=== PATIENT | male | born 1940 | race Caucasian/White ===

== ENCOUNTER → 2019-12-16 | Day surgery (SDC) | payer MEDICARE, OTHER ==
[2019-12-11 15:53] LABS: BASOPHILS % 0.2 % (0.0-1.0); EOSINOPHILS # (AUTO) 0.2 (0.0-0.4); EOSINOPHILS % 2.4 % (0.0-6.0); HEMATOCRIT 42.2 % (38.2-49.6); HEMOGLOBIN 14.1 g/dL (14.0-18.0); LYMPHOCYTES # (AUTO) 2.8 (1.0-3.2); LYMPHOCYTES % 31.6 % (18.0-39.1); MEAN CORPUSCULAR HEMOGLOBIN 30.8 pg (28-32); MEAN CORPUSCULAR HGB CONC 33.4 g/dL (31-35); MEAN CORPUSCULAR VOLUME 92.1 fL (81-99); MONOCYTES # (AUTO) 0.9 (0.2-0.8); MONOCYTES % 10.4 % (4.4-11.3); NEUTROPHILS # (AUTO) 4.9 (2.1-6.9); NEUTROPHILS % 55.1 % (38.7-80.0); PLATELET COUNT 157 x10e3/uL (140-360); RED BLOOD COUNT 4.58 x10e6/uL (4.3-5.7); RED CELL DISTRIBUTION WIDTH 13.2 % (11.7-14.4)
[2019-12-11 16:04] LABS: PARTIAL THROMBOPLASTIN TIME 27.5 seconds (23.8-35.5)
[2019-12-11 16:09] LABS: INR 1.02; PROTHROMBIN TIME 13.6 seconds (11.9-14.5)
[2019-12-11 16:16] LABS: ALBUMIN 3.8 g/dL (3.5-5.0); ALBUMIN/GLOBULIN RATIO 1.1 (0.8-2.0); ANION GAP 14.9 mmol/L (8-16); CALCIUM 9.4 mg/dL (8.4-10.2); CREATININE, SERUM 1.18 mg/dL (0.72-1.25); POTASSIUM 3.9 mmol/L (3.5-5.1)
--- NOTE | 2019-12-11 16:21 | Diagnostic Imaging Report ---
Chest, 2 views, 12/11/2019. History: Preop, left heart catheter. Comparison: None available. Findings: The cardiomediastinal silhouette and pulmonary vasculature are within normal limits. There is bilateral peripheral interstitial prominence, especially at the lung bases. There is no focal consolidation or pleural effusion. There are no acute osseous or soft tissue abnormalities. Impression: Findings suggestive of fibrotic lung disease. Comparison with prior studies would be helpful. No focal consolidation or effusion. Signed by: Kana Asher on 12/11/2019 4:19 PM
[2019-12-11 16:28] LABS: CHOL/HDL RATIO 4.4 (3.9-4.7)
[2019-12-11 16:48] LABS: THYROID STIMULATING HORMONE 1.727 uIU/mL (0.350-4.940)
--- NOTE | 2019-12-13 23:41 | History and Physical ---
DATE OF PROCEDURE: December 16, 2019. CHIEF COMPLAINT: Chest pain and positive exercise treadmill stress test. HISTORY OF PRESENT ILLNESS: Mr. Cui is an 79-year-old gentleman with history of hypertension, hypercholesteremia with prior history of positive stress test done back in October of 2019 at [facility] where he had positive EKG changes and a nuclear stress imaging that appeared to be normal, but may have been suspicious for balanced ischemia situation. He has a long-standing history of having positive ischemic risk stratification and complains of class 3 equivalent angina symptoms. He came to us for evaluation back in November of this year and we went ahead and ischemically risk stratify with an exercise treadmill stress test. On our study, it only lasted for 4 minutes, terminating in stage II of activity and had significant ST-T wave changes and severe shortness of breath. Structurally, his heart shows preserved EF at about 55 to 60% with mild aortic stenosis. In light of his positive ischemic risk stratification and age as well as high pretest probability of coronary artery disease, he is here for a diagnostic angiography for definitive ischemic evaluation. PAST MEDICAL HISTORY: 1. Hypertension. 2. Hypercholesteremia. 3. History of abnormal stress test. PAST SURGICAL HISTORY: History of knee surgery in 2009. FAMILY HISTORY: Mother at 87 with heart problems. Father was shot at age of 42. Has a brother at 74, had heart problems. Sister at 65 with a heart attack and sister had cancer at age of 45. SOCIAL HISTORY: He is a former smoker, quit 30 years ago. He is . Denies any alcohol or illicit drug use. ALLERGIES: PENICILLIN G CAUSING HIVES. CURRENT MEDICATIONS: Include aspirin 81 mg daily, atorvastatin 10 mg daily, Toprol-XL 50 mg daily, Hyzaar 100/25 mg tablets half a tablet daily, potassium 8 mEq daily, niacin 500 mg b.i.d. REVIEW OF SYSTEMS: GENERAL: Denies any fevers, chills, or weight changes. HEENT: No headaches, visual complaints, sore throat, or stuffy nose. RESPIRATORY: Denies any pleuritic chest pain. Has occasional cough. CARDIOVASCULAR: As per HPI. GI: Denies any abdominal pain, bright red blood per rectum, melena, hematemesis, nausea, or vomiting. HEMATOLOGY: No easy bruising or bleeding. : No urinary frequency or incontinence. MUSCULOSKELETAL: Occasional back pains, knee aches. SKIN: No rashes. NEUROLOGIC: Good coordination, memory, and speech. No gait abnormalities or weakness. PSYCH: Normal mood. No nervousness, obsessions, or compulsions. PHYSICAL EXAMINATION: VITAL SIGNS: Height of 70 inches, weight of 208 pounds, BMI is 29.84, blood pressure 140/80, pulse 63, respiratory rate 18, temperature 97.8. GENERAL: This is a well-nourished, well-developed gentleman, who is currently overweight, currently in no apparent distress. HEENT: Normocephalic, atraumatic. Pupils equal, round, and reactive to light. Extraocular movements are intact. Oropharynx is clear. NECK: No elevation of jugular venous pulsation. There is faint bilateral carotid bruit. CARDIOVASCULAR: Regular rate and rhythm. Normal S1, S2. A 2/6 systolic ejection murmur at the right upper sternal border. LUNGS: Clear to auscultation bilaterally. ABDOMEN: Soft, nontender, nondistended. Normoactive bowel sounds. No hepatosplenomegaly. BACK: No costovertebral angle tenderness. EXTREMITIES: Warm with no edema. There is 2+ bilateral radial pulses with a normal Brandon's test, 1-2+ bilateral femoral pulses, 1+ pedal pulses. NEUROLOGIC: Alert, oriented x3. Cranial nerves II through XII are intact. Strength is 5/5. Grossly nonfocal. PSYCH: Normal fluent speech. Appropriate affect. No anxiety or delusions. DIAGNOSES: 1. Suspected coronary artery disease with equivalent angina symptoms, class 3. 2. Abnormal exercise treadmill stress test dated 11/29/2019. 3. Hypertension. 4. Hypercholesteremia. 5. Mild aortic stenosis. 6. Former smoker. PLAN/RECOMMENDATIONS: 1. Proceed with definitive ischemic risk stratification with a cardiac catheterization today. Per patient preferences, we will proceed with a right radial approach. 2. Procedure risks and benefits explained, alternatives were discussed, and he agrees to proceed. 3. Aggressive risk factor modification medical therapy. 4. Further plan/recommendations to follow. MD MILTON Pond/GERALDINE /[id number]
[2019-12-16] VITALS (9 sets, daily range): BP systolic 115–157; BP diastolic 71–79
[~2019-12-16] VITALS: Ht 180.3 cm; Wt 92.1 kg
[~2019-12-16] MED LIST: ASPIR 8181 MG PO; FENTANYL CITRATE/PF 100MCG/2 ML INJ ONE; HEPARIN SOD (PORCINE) 1000 UNIT/ML 30ML ONE; HEPARIN SOD/SOD CHLORIDE 2,000 ML ONE; HYZAAR 100-251 EACH PO; IOPAMIDOL 370 MG/ML 200 ML INFUS..BTL INJ ONE; LIDOCAINE HCL 2% LOCAL 20 ML VIAL ONE; LIPITOR20 MG PO; MIDAZOLAM HCL 2 MG/2 ML VIAL ONE; NIACIN500 M2 PO; NITROGLYCERIN/D5W 200 MCG/ML 250 ML ONE; OMEGA 3 FISH O1 EACH PO; POTASSIUM PO; PRESERVISION T1 EACH PO; SODIUM CHLORIDE 0.9% 1000ML 1,000 ML ONE; TOPROL XL50 MG PO; VERAPAMIL HCL 2.5 MG/ML 2 ML VIAL ONE
--- OUTSIDE RECORDS SUMMARY | 2019-12-16 07:15 | XMS REPORT ---
Author Author [facility] Address Unknown Phone Unavailable Care Team Providers Care Tube Turner Name Role Phone JEAN CHOWDARY Unavailable Unavailable Problems This patient has no known problems. Allergies, Adverse Reactions, Alerts This patient has no known allergies or adverse reactions. Medications This patient has no known medications. Results Test Description Test Time Test Comments Text Results Atomic Results Result Comments CHEST 2 VIEWS 2019-12-11 16:16:00 [place] [id number] Patient Name: RUPA CARABALLO MR #: [id number] : 1940 Age/Sex: 79/M Req #: [id number] Adm Physician: Ordered by: JEAN CHOWDARY MD Report #: [id number] Location: [facility]RECTING ENGINEER Room/Bed: Procedure: [id number] DX/CHEST 2 VIEWS Exam Date: 12/11/19 Exam Time: 1554 REPORT STATUS: Signed Chest, 2 views, 12/11/2019. History: Preop, left h eart catheter. Comparison: None available. Findings: The cardiomediastinal silhouette and pulmonary vasculature are within normal limits. There is bilateral peripheral interstitial prominence, especially at the lung bases. There is no focal consolidation or pleural effusion. There are no acute osseous or soft tissue abnormalities. Impression: Findings suggestive of fibrotic lung disease. Comparison with prior studies would be helpful. No focal consolidation or effusion. Signed by: Martin Asher on 12/11/2019 4:19 PM Dictated By: MARTIN ASHER MD [id number] Transcribed By: ALISHA on 12/11/19 1619 COPY TO: JEAN CHOWDARY MD
--- NOTE | 2019-12-16 16:24 | Operative Report ---
DATE OF PROCEDURE: 12/16/2019 SURGEON: Ruth Moreira MD PROCEDURE PERFORMED: Left heart cardiac catheterization, coronary angiography. INDICATION FOR PROCEDURE: This is an 79-year-old gentleman with history of hypertension and hypercholesteremia. He has been having class III equivalent angina symptoms and had abnormal ischemic risk stratification with an exercise treadmill stress test. He has had previous ischemic EKG changes on nuclear scan, however, does not show much in terms of ischemic burden. After long discussion in terms of different management options, the patient is here for definitive ischemic evaluation with a cardiac catheterization. Overall, we have a high pretest probability of disease. DESCRIPTION OF PROCEDURE: After risks, benefits, pros and cons of this procedure were explained, the patient agreed to proceed. The patient was brought to cardiac catheterization laboratory where the right wrist was prepped and draped in usual sterile fashion. Preprocedure Brandon's and Barbeau test noted to be normal. A 1% lidocaine solution was used on the right wrist region. Access to the right radial artery was obtained and a long five-Tajik Terumo glide sheath was placed. Intra-arterial verapamil 2.5 mg and nitroglycerin 200 mcg were given through the sheath and 5000 units of intravenous heparin was given for systemic anticoagulation. Selective coronary angiography of the [place] left and right coronary artery was performed with Goran 4.0 diagnostic catheter. After noting subtotaled RCA, but this being a non dominant vessel, we decided to treat him medically. The diagnostic catheter was removed with a J-wire and a Terumo TR band was successfully deployed utilizing hemostasis technique and total of 15 mL of air was placed. COMPLICATIONS: None. ESTIMATED BLOOD LOSS: None. FINDINGS: 1. Left main is 40% ostial stenosis, gives rise to an LAD, ramus intermedius, circumflex branch. 2. The LAD has a 40% proximal stenosis followed by 40% mid stenosis. 3. Ramus intermedius is a moderate caliber vessel, just mild diffuse disease. 4. Left circumflex artery is dominant, has a 50% proximal stenosis, gives rise to numerable amount of marginal branches in the mid posterolateral and then terminates into the left PDA. This vessel is diffusely mild to moderately diseased throughout. 5. RCA is small, non dominant 1.5 mm vessel. There is 99% subtotal occlusion in the mid RCA. Risks of revascularization high without much benefit and opted to treat medically for a non dominant RCA. PLAN/RECOMMENDATIONS: 1. Overall, the patient has disease in all his coronary arteries; however, we will opt to treat him medically. 2. Removal of TR band per protocol. 3. Assuming no access site issues, the patient is okay to go home later today. MD MILTON Pond/GERALDINE /[id number]
== END | disposition home or self-care (01) ==
LOC: CATH LAB 05:53
PROVIDERS: ATTEND Internal Medicine Cardiovascular Disease
DX: I25.118 Atherosclerotic heart disease of native coronary artery with other forms of angina pectoris (principal); R94.39 Abnormal result of other cardiovascular function study; I35.0 Nonrheumatic aortic (valve) stenosis; I10 Essential (primary) hypertension; E78.00 Pure hypercholesterolemia, unspecified; R55 Syncope and collapse; R06.09 Other forms of dyspnea; R09.89 Other specified symptoms and signs involving the circulatory and respiratory systems; Z88.0 Allergy status to penicillin; Z79.82 Long term (current) use of aspirin; Z87.891 Personal history of nicotine dependence; Z82.49 Family history of ischemic heart disease and other diseases of the circulatory system
CPT/HCPCS: 36415; 71046; 80053; 80061; 84443; 85025; 85610; 85730; 93454; C1769; C1887; J1644; J2001; J2250; J3010; J7030; Q9967

== ENCOUNTER → 2020-08-20 | Outpatient (CLI) | payer MEDICARE, OTHER ==
[~2020-08-20] MED LIST changes: -FENTANYL CITRATE/PF 100MCG/2 ML INJ ONE; -HEPARIN SOD (PORCINE) 1000 UNIT/ML 30ML ONE; -HEPARIN SOD/SOD CHLORIDE 2,000 ML ONE; -IOPAMIDOL 370 MG/ML 200 ML INFUS..BTL INJ ONE; -LIDOCAINE HCL 2% LOCAL 20 ML VIAL ONE; -MIDAZOLAM HCL 2 MG/2 ML VIAL ONE; -NITROGLYCERIN/D5W 200 MCG/ML 250 ML ONE; -SODIUM CHLORIDE 0.9% 1000ML 1,000 ML ONE; -VERAPAMIL HCL 2.5 MG/ML 2 ML VIAL ONE
--- NOTE | 2020-08-20 16:05 | Diagnostic Imaging Report ---
Lumbar spine, 4 views complete INDICATION: ^[id number] ^1440 ^BACK PAIN Comparison: None available. Discussion: There are 5 lumbar-type nonrib-bearing vertebral bodies identified. There is preservation of the normal lumbar lordosis. Oblique views are negative for gross pars interarticularis defect. Moderate to severe multilevel degenerative changes are noted throughout the lower thoracic and lumbar spine with multilevel disc space narrowing, anterolateral osteophyte formation and posterior facet arthropathy. Findings are most significant at L4-5 and L5-S1. Vacuum phenomena is noted at L5-S1. SI joints are patent. Vascular calcifications are noted. Soft tissues are otherwise unremarkable. 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 Negative for anterolisthesis or pars defect. Signed by: Javier Regan MD on 08/20/2020 4:02 PM
--- NOTE | 2020-08-20 16:07 | Diagnostic Imaging Report ---
Hips bilateral, 2 views each INDICATION: ^BILATERAL HIP PAIN Comparison: None available. Discussion: AP and oblique views of the bilateral hip joints are negative for an acute displaced fracture or dislocation. Joint spaces demonstrate mild narrowing with small osteophytes at the lateral acetabular margins. Pubic symphysis is not widened. Visualized portions of the pelvis are unremarkable. Gluteal enthesopathy is noted. Vascular calcifications are noted. IMPRESSION: Negative for acute displaced fracture or dislocation of the hip joints. Mild degenerative changes of the hip joints are noted. Signed by: Javier Regan MD on 08/20/2020 4:04 PM
== END ==
LOC: RAD 14:15
DX: M54.5 Low back pain (principal); M25.552 Pain in left hip; M25.551 Pain in right hip
CPT/HCPCS: 72110; 73521

== ENCOUNTER → 2022-08-02 | Outpatient (CLI) | payer MEDICARE | LOC: RAD 09:57 | PROVIDERS: ATTEND Internal Medicine Critical Care Medicine | DX: R06.00 Dyspnea, unspecified (principal) | CPT/HCPCS: 71046 ==

== ENCOUNTER 2022-11-25 19:10 | Emergency (ER) | payer MEDICARE, OTHER ==
[~2022-11-25] VITALS: Ht 180.3 cm; Wt 92.1 kg
[2022-11-25] MEDS ORDERED: TRAMADOL HCL 50 MG TAB PO STA (19:45)
== END 2022-11-25 20:47 | disposition home or self-care (01) ==
LOC: ER 19:16
DX: S93.491A Sprain of other ligament of right ankle, initial encounter (principal); R42 Dizziness and giddiness; X50.1XXA Overexertion from prolonged static or awkward postures, initial encounter; Y93.01 Activity, walking, marching and hiking; Y92.89 Other specified places as the place of occurrence of the external cause; I10 Essential (primary) hypertension; E78.5 Hyperlipidemia, unspecified
CPT/HCPCS: 70450; 99283

== ENCOUNTER 2023-01-04 00:10 | Inpatient (IN) | payer MEDICARE ==
[~2023-01-04] VITALS: Ht 180.3 cm; Wt 99.5 kg
[2023-01-04] VITALS (16 sets, daily range): BP systolic 105–203; BP diastolic 60–93
[2023-01-04 00:30] LABS: BASOPHILS % 0.2 % (0.0-1.0); EOSINOPHILS # (AUTO) 0.4 (0.0-0.4); EOSINOPHILS % 2.3 % (0.0-6.0); HEMATOCRIT 37.5 % (38.2-49.6); HEMOGLOBIN 12.1 g/dL (14.0-18.0); LYMPHOCYTES # (AUTO) 0.9 (1.0-3.2); LYMPHOCYTES % 5.6 % (18.0-39.1); MEAN CORPUSCULAR HEMOGLOBIN 29.4 pg (28-32); MEAN CORPUSCULAR HGB CONC 32.3 g/dL (31-35); MEAN CORPUSCULAR VOLUME 91.2 fL (81-99); MONOCYTES # (AUTO) 1.2 (0.2-0.8); MONOCYTES % 7.6 % (4.4-11.3); NEUTROPHILS # (AUTO) 13.2 (2.1-6.9); NEUTROPHILS % 83.8 % (38.7-80.0); PLATELET COUNT 192 x10e3/uL (140-360); RED BLOOD COUNT 4.11 x10e6/uL (4.3-5.7); RED CELL DISTRIBUTION WIDTH 13.3 % (11.7-14.4)
[2023-01-04] MEDS ORDERED: LEVOFLOXACIN 750MG/D5W 150ML 150 ML IV ONE (00:30)
[2023-01-04 00:47] LABS: ALBUMIN 2.8 g/dL (3.5-5.0); ALBUMIN/GLOBULIN RATIO 0.6 (0.8-2.0); ANION GAP 15.2 mmol/L (8-16); CALCIUM 8.5 mg/dL (8.4-10.2); POTASSIUM 4.2 mmol/L (3.5-5.1)
[2023-01-04] MEDS ORDERED: IOPAMIDOL 370 MG/ML 100 ML INFUS..BTL INJ ONE (01:21)
[2023-01-04 01:26] LABS: CREATINE KINASE MB 2.1 ng/mL (0-5.0)
[2023-01-04] MEDS ORDERED: ONDANSETRON HCL INJ 2MG/ML 2ML 2 MG/ML VIAL IV PRN (05:00)
[2023-01-04] MEDS ORDERED: Morphine 4mg INJECTION 4 MG/ML INJ IV PRN (05:00)
[2023-01-04] MEDS: METHYLPREDNISOLONE SOD SUCC 40 MG/ML VIAL 1ML IV SCH ×2 (05:25→05:28)
[2023-01-04] MEDS ORDERED: ACETAMINOPHEN 325 MG TAB PO PRN (08:30)
[2023-01-04] MEDS: SENNOSIDES 8.6 MG TAB PO SCH ×2 (09:00→13:25)
[2023-01-04] MEDS: DOCUSATE SODIUM 100 MG CAP PO SCH ×2 (09:00→13:26)
[2023-01-04 09:38] LABS: CREATINE KINASE MB 2.5 ng/mL (0-5.0)
[2023-01-04 12:46] LABS: ABG HCO3 25 mmol/L (22-26); ABG PCO2 41 mmHg (35-45); ABG PH 7.39 (7.35-7.45); ABG PO2 140 mmHg (80-105); ABG TCO2 26
[2023-01-04] MEDS ORDERED: LOSARTAN POTASSIUM 100 MG TAB PO SCH (13:00)
[2023-01-04] MEDS ORDERED: SUCCINYLCHOLINE CHLORIDE 20 MG/ML 10ML VIAL ONE (13:10)
[2023-01-04] MEDS ORDERED: WATER STERILE 10 ML VIAL ONE (13:10)
[2023-01-04] MEDS ORDERED: MIDAZOLAM HCL 2 MG/2 ML VIAL ONE (13:10)
[2023-01-04] MEDS ORDERED: VECURONIUM BROMIDE FOR INJ 20 MG VIAL ONE (13:10)
[2023-01-04] MEDS ORDERED: ETOMIDATE 2 MG/ML 10 ML INJ IV ONE (13:10)
[2023-01-04] MEDS: LOSARTAN POTASSIUM 100 MG TAB PO SCH (13:27)
[2023-01-04] MEDS: ENOXAPARIN SOD INJ 40 MG/0.4 ML SYR SC SCH (16:53)
[2023-01-04] MEDS: HYDRALAZINE HCL 20 MG/ML VIAL IV PRN (16:53)
[2023-01-04 17:01] LABS: CREATINE KINASE MB 4.3 ng/mL (0-5.0)
[2023-01-04] MEDS: DEXMEDETOMIDINE 400MCG/NS100ML 100 ML IV PRN (18:24)
[2023-01-04] MEDS ORDERED: GABAPENTIN300 MG PO (18:29)
[2023-01-04] MEDS ORDERED: FLOMAX0.4 MG PO (18:30)
[2023-01-04] MEDS ORDERED: D3-5000125 MCG PO (18:38)
[2023-01-04] MEDS ORDERED: zinc PO (18:38)
[2023-01-04] MEDS ORDERED: METHYLPREDNISOLONE SOD SUCC 40 MG/ML VIAL 1ML IV SCH (21:00)
[2023-01-04] MEDS: LEVOFLOXACIN 750MG/D5W 150ML 150 ML IV SCH (21:25)
[2023-01-04] MEDS: ASPIRIN 81 MG CHEW TAB PO SCH (21:25)
[2023-01-05] VITALS (65 sets, daily range): BP systolic 60–216; BP diastolic 39–102
[2023-01-05] MEDS: DEXMEDETOMIDINE 400MCG/NS100ML 100 ML IV PRN ×2 (02:03→07:28)
[2023-01-05 05:32] LABS: BASOPHILS % 0.1 % (0.0-1.0); HEMATOCRIT 36.9 % (38.2-49.6); HEMOGLOBIN 11.7 g/dL (14.0-18.0); LYMPHOCYTES # (AUTO) 0.7 (1.0-3.2); LYMPHOCYTES % 3.6 % (18.0-39.1); MEAN CORPUSCULAR HGB CONC 31.7 g/dL (31-35); MEAN CORPUSCULAR VOLUME 91.6 fL (81-99); MONOCYTES % 4.7 % (4.4-11.3); NEUTROPHILS # (AUTO) 18.5 (2.1-6.9); NEUTROPHILS % 91.1 % (38.7-80.0); PLATELET COUNT 195 x10e3/uL (140-360); RED BLOOD COUNT 4.03 x10e6/uL (4.3-5.7); RED CELL DISTRIBUTION WIDTH 13.4 % (11.7-14.4)
[2023-01-05 05:57] LABS: ALBUMIN 2.3 g/dL (3.5-5.0); ALBUMIN/GLOBULIN RATIO 0.5 (0.8-2.0); ANION GAP 16.7 mmol/L (8-16); CALCIUM 8.5 mg/dL (8.4-10.2); CREATININE, SERUM 0.87 mg/dL (0.72-1.25); POTASSIUM 4.7 mmol/L (3.5-5.1)
[2023-01-05] MEDS: HYDRALAZINE HCL 20 MG/ML VIAL IV PRN (06:06)
[2023-01-05 06:11] LABS: MAGNESIUM 1.9 MG/DL (1.3-2.1)
[2023-01-05 06:36] LABS: FERRITIN 635.39 ng/mL (21.81-274.66); THYROID STIMULATING HORMONE 2.286 uIU/mL (0.350-4.940)
[2023-01-05 07:00] LABS: PLATELET ESTIMATE ADEQUATE; PLATELET MORPHOLOGY COMMENT NORMAL; RBC MORPHOLOGY COMMENT NORMAL
[2023-01-05 07:02] LABS: LYMPHOCYTES % (MANUAL) 3 % (19-48); MONOCYTES % (MANUAL) 1 % (3.4-9.0); NEUTROPHILS % (MANUAL) 96 % (40-74)
[2023-01-05] MEDS: DOCUSATE SODIUM 100 MG CAP PO SCH (09:00)
[2023-01-05] MEDS: LOSARTAN POTASSIUM 100 MG TAB PO SCH (09:00)
[2023-01-05] MEDS: AMIODARONE HCL 200 MG TAB PO SCH (09:00)
[2023-01-05] MEDS: ATORVASTATIN 10 MG TAB PO SCH (09:00)
[2023-01-05] MEDS: SENNOSIDES 8.6 MG TAB PO SCH (09:00)
[2023-01-05] MEDS: FOLIC ACID 1 MG TAB PO SCH (10:00)
[2023-01-05] MEDS: METHYLPREDNISOLONE SOD SUCC 125 MG/2ML VIAL IV SCH ×2 (12:11→20:47)
[2023-01-05] MEDS ORDERED: SODIUM CHLORIDE 0.9% 500ML 500 ML IV ONE (12:15)
[2023-01-05] MEDS ORDERED: SODIUM CHLORIDE 0.9% 500ML 500 ML ONE (12:16)
[2023-01-05] MEDS ORDERED: PROPOFOL IV EMULSION 10MG/ML 100 ML ONE (14:55)
[2023-01-05] MEDS ORDERED: PROPOFOL IV EMULSION 10 MG/ML 20 ML VIAL IV SCH (15:00)
[2023-01-05] MEDS ORDERED: PROPOFOL IV EMULSION 10MG/ML 100 ML IV PRN (15:15)
[2023-01-05] MEDS ORDERED: SODIUM CHLORIDE 0.9% 1000ML 1,000 ML ONE (15:15)
[2023-01-05] MEDS ORDERED: NOREPINEPHRINE 8 MG/D5W 250 ML 250 ML ONE (15:26)
[2023-01-05] MEDS: SODIUM CHLORIDE 0.9% 1000ML 1,000 ML ONE (15:26)
[2023-01-05 15:43] LABS: BASOPHILS % 0.1 % (0.0-1.0); HEMATOCRIT 34.3 % (38.2-49.6); HEMOGLOBIN 10.6 g/dL (14.0-18.0); LYMPHOCYTES # (AUTO) 1.9 (1.0-3.2); LYMPHOCYTES % 8.4 % (18.0-39.1); MEAN CORPUSCULAR HEMOGLOBIN 29.3 pg (28-32); MEAN CORPUSCULAR HGB CONC 30.9 g/dL (31-35); MEAN CORPUSCULAR VOLUME 94.8 fL (81-99); MONOCYTES # (AUTO) 1.6 (0.2-0.8); MONOCYTES % 7.1 % (4.4-11.3); NEUTROPHILS # (AUTO) 18.8 (2.1-6.9); NEUTROPHILS % 83.4 % (38.7-80.0); PLATELET COUNT 158 x10e3/uL (140-360); RED BLOOD COUNT 3.62 x10e6/uL (4.3-5.7); RED CELL DISTRIBUTION WIDTH 13.5 % (11.7-14.4)
[2023-01-05] MEDS ORDERED: SODIUM BICARBONATE 8.4% INJ 50 ML SYR IV STA (15:45)
[2023-01-05] MEDS ORDERED: MIDAZOLAM HCL 2 MG/2 ML VIAL IV STA (15:45)
[2023-01-05 15:51] LABS: INR 1.76; PROTHROMBIN TIME 20.6 seconds (11.9-14.5)
[2023-01-05 15:59] LABS: ALBUMIN 1.9 g/dL (3.5-5.0); ALBUMIN/GLOBULIN RATIO 0.5 (0.8-2.0); ANION GAP 14.3 mmol/L (8-16); CALCIUM 7.2 mg/dL (8.4-10.2); CREATININE, SERUM 0.85 mg/dL (0.72-1.25); POTASSIUM 4.3 mmol/L (3.5-5.1)
[2023-01-05] MEDS ORDERED: MIDAZOLAM HCL 2 MG/2 ML VIAL ONE (15:59)
[2023-01-05] MEDS ORDERED: SODIUM BICARBONATE 8.4% SYRING 50 ML ONE ×2 (16:00→16:11)
[2023-01-05] MEDS ORDERED: FENTANYL 2000MCG/NS 250 250 ML IV PRN (16:00)
[2023-01-05] MEDS ORDERED: SODIUM CHLORIDE 0.45% 1,000 ML ONE (16:03)
[2023-01-05] MEDS: SODIUM BICARBONATE 8.4% INJ 50 ML SYR IV STA ×2 (16:11→17:40)
[2023-01-05 16:23] LABS: ABG HCO3 22 mmol/L (22-26); ABG PCO2 33 mmHg (35-45); ABG PH 7.42 (7.35-7.45); ABG PO2 72 mmHg (80-105); ABG TCO2 22
[2023-01-05 16:25] LABS: ABG PH 7.19 (7.35-7.45)
[2023-01-05 16:26] LABS: ABG HCO3 18 mmol/L (22-26); ABG PCO2 48 mmHg (35-45); ABG PO2 84 mmHg (80-105); ABG TCO2 20
[2023-01-05 16:30] LABS: CREATINE KINASE MB 10.4 ng/mL (0-5.0)
[2023-01-05] MEDS ORDERED: ASPIRIN 81 MG CHEW TAB PO ONE (16:45)
[2023-01-05] MEDS ORDERED: AZITHROMYCIN 250 MG TAB PO SCH (17:00)
[2023-01-05] MEDS: NOREPINEPHRINE 8 MG/D5W 250 ML 250 ML IV SCH ×2 (17:15→19:17)
[2023-01-05 17:24] LABS: ABG HCO3 20 mmol/L (22-26); ABG PCO2 53 mmHg (35-45); ABG PO2 97 mmHg (80-105); ABG TCO2 22
[2023-01-05] MEDS: CEFTRIAXONE 2 GM in SODIUM CHLORIDE 0.9% 100 ML IV SCH (17:28)
[2023-01-05] MEDS: SODIUM BICARBONATE 8.4% SYRING 50 ML in SODIUM CHLORIDE 0.45% 1,000 ML IV SCH (18:13)
[2023-01-05] MEDS: ENOXAPARIN SOD INJ 40 MG/0.4 ML SYR SC SCH (18:15)
[2023-01-05] MEDS: VASOPRESSIN 60 UNIT in DEXTROSE 5% 50ML 57 ML IV PRN (19:16)
[2023-01-05 19:44] LABS: ABG PCO2 51 mmHg (35-45); ABG PH 7.24 (7.35-7.45)
[2023-01-05 19:45] LABS: ABG HCO3 22 mmol/L (22-26); ABG PO2 98 mmHg (80-105); ABG TCO2 23
[2023-01-05] MEDS ORDERED: Vancomycin IV 1 GM in SODIUM CHLORIDE 0.9% 250ML 250 ML IV ONE (20:30)
[2023-01-05] MEDS: LEVOFLOXACIN 750MG/D5W 150ML 150 ML IV SCH (20:48)
[2023-01-05] MEDS: ASPIRIN 81 MG CHEW TAB PO SCH (20:48)
[2023-01-05 21:59] LABS: CREATINE KINASE MB 20.8 ng/mL (0-5.0)
[2023-01-06] VITALS (82 sets, daily range): BP systolic 70–214; BP diastolic 43–96
[2023-01-06] MEDS: NOREPINEPHRINE 8 MG/D5W 250 ML 250 ML IV SCH ×5 (01:30→23:27)
[2023-01-06] MEDS: SODIUM BICARBONATE 8.4% SYRING 50 ML in SODIUM CHLORIDE 0.45% 1,000 ML IV SCH ×2 (02:41→13:53)
[2023-01-06 06:26] LABS: BASOPHILS # (AUTO) 0.1 (0.0-0.1); BASOPHILS % 0.2 % (0.0-1.0); HEMATOCRIT 42.6 % (38.2-49.6); HEMOGLOBIN 13.4 g/dL (14.0-18.0); LYMPHOCYTES # (AUTO) 0.7 (1.0-3.2); LYMPHOCYTES % 2.6 % (18.0-39.1); MEAN CORPUSCULAR HEMOGLOBIN 29.6 pg (28-32); MEAN CORPUSCULAR HGB CONC 31.5 g/dL (31-35); MONOCYTES # (AUTO) 2.1 (0.2-0.8); MONOCYTES % 7.3 % (4.4-11.3); NEUTROPHILS # (AUTO) 24.6 (2.1-6.9); NEUTROPHILS % 87.5 % (38.7-80.0); PLATELET COUNT 137 x10e3/uL (140-360); RED BLOOD COUNT 4.53 x10e6/uL (4.3-5.7)
[2023-01-06 06:56] LABS: ALBUMIN 2.3 g/dL (3.5-5.0); ALBUMIN/GLOBULIN RATIO 0.5 (0.8-2.0); CREATININE, SERUM 2.29 mg/dL (0.72-1.25)
[2023-01-06 07:02] LABS: CREATINE KINASE MB 84.7 ng/mL (0-5.0)
[2023-01-06 07:30] LABS: BAND NEUTROPHILS % (MANUAL) 2 %; LYMPHOCYTES % (MANUAL) 4 % (19-48); METAMYELOCYTES % (MANUAL) 2 % (0-0); MONOCYTES % (MANUAL) 5 % (3.4-9.0); NEUTROPHILS % (MANUAL) 87 % (40-74); PLATELET ESTIMATE ADEQUATE; PLATELET MORPHOLOGY COMMENT NORMAL; RBC MORPHOLOGY COMMENT NORMAL
[2023-01-06 07:56] LABS: ABG HCO3 18 mmol/L (22-26); ABG PCO2 47 mmHg (35-45); ABG PH 7.19 (7.35-7.45); ABG PO2 162 mmHg (80-105); ABG TCO2 19
[2023-01-06] MEDS: METHYLPREDNISOLONE SOD SUCC 125 MG/2ML VIAL IV SCH ×2 (08:32→20:19)
[2023-01-06] MEDS: LOSARTAN POTASSIUM 100 MG TAB PO SCH (08:33)
[2023-01-06] MEDS: AMIODARONE HCL 200 MG TAB PO SCH (08:33)
[2023-01-06] MEDS: DOCUSATE SODIUM 100 MG CAP PO SCH (08:33)
[2023-01-06] MEDS: CEFTRIAXONE 2 GM in SODIUM CHLORIDE 0.9% 100 ML IV SCH (08:33)
[2023-01-06] MEDS: ATORVASTATIN 10 MG TAB PO SCH (08:34)
[2023-01-06] MEDS: SENNOSIDES 8.6 MG TAB PO SCH (08:34)
[2023-01-06] MEDS: FOLIC ACID 1 MG TAB PO SCH (08:34)
[2023-01-06] MEDS: MIDAZOLAM HCL 2 MG/2 ML VIAL IV PRN ×2 (08:49→14:57)
[2023-01-06] MEDS ORDERED: CEFTRIAXONE 2 GM in SODIUM CHLORIDE 0.9% 100 ML IV SCH (09:00)
[2023-01-06] MEDS ORDERED: SOD POLYSTYRENE SULFONATE SUSP 15 GM/60 ML BTL PO ONE (10:15)
[2023-01-06] MEDS: MUPIROCIN 2% OINT 22 GM TUBE TOP SCH ×2 (11:11→20:28)
[2023-01-06 13:23] LABS: ANION GAP 23.3 mmol/L (8-16); CALCIUM 7.5 mg/dL (8.4-10.2); CREATININE, SERUM 2.67 mg/dL (0.72-1.25); POTASSIUM 5.3 mmol/L (3.5-5.1)
[2023-01-06 14:10] LABS: ABG HCO3 16 mmol/L (22-26); ABG PCO2 43 mmHg (35-45); ABG PH 7.17 (7.35-7.45); ABG PO2 174 mmHg (80-105); ABG TCO2 17
[2023-01-06] MEDS ORDERED: SODIUM BICARBONATE 8.4% INJ 50 ML SYR IV ONE (16:15)
[2023-01-06] MEDS: SODIUM BICARBONATE 8.4% 150 ML in DEXTROSE 5% 1,000 ML IV SCH (16:34)
[2023-01-06] MEDS: ENOXAPARIN SOD INJ 40 MG/0.4 ML SYR SC SCH (16:35)
[2023-01-06 17:16] LABS: ABG HCO3 15 mmol/L (22-26); ABG PCO2 39 mmHg (35-45); ABG PH 7.18 (7.35-7.45); ABG PO2 112 mmHg (80-105); ABG TCO2 16
[2023-01-06] MEDS ORDERED: FUROSEMIDE INJ 10 MG/ML 4 ML VIAL IV ONE (18:00)
[2023-01-06] MEDS: LEVOFLOXACIN 750MG/D5W 150ML 150 ML IV SCH (20:20)
[2023-01-06] MEDS: VASOPRESSIN 60 UNIT in DEXTROSE 5% 50ML 57 ML IV PRN (20:22)
[2023-01-06] MEDS: DOXYCYCLINE HYCLATE TABLET 100 MG TAB PO SCH (21:00)
[2023-01-06] MEDS: ASPIRIN 81 MG CHEW TAB PO SCH (21:00)
[2023-01-07] VITALS (67 sets, daily range): BP systolic 101–170; BP diastolic 50–93
[2023-01-07] MEDS: SODIUM BICARBONATE 8.4% 150 ML in DEXTROSE 5% 1,000 ML IV SCH (02:44)
[2023-01-07 06:49] LABS: BASOPHILS # (AUTO) 0.1 (0.0-0.1); BASOPHILS % 0.3 % (0.0-1.0); HEMATOCRIT 38.1 % (38.2-49.6); HEMOGLOBIN 12.4 g/dL (14.0-18.0); LYMPHOCYTES # (AUTO) 1.1 (1.0-3.2); LYMPHOCYTES % 5.1 % (18.0-39.1); MEAN CORPUSCULAR HEMOGLOBIN 29.3 pg (28-32); MEAN CORPUSCULAR HGB CONC 32.5 g/dL (31-35); MEAN CORPUSCULAR VOLUME 90.1 fL (81-99); MONOCYTES # (AUTO) 1.7 (0.2-0.8); MONOCYTES % 7.6 % (4.4-11.3); NEUTROPHILS # (AUTO) 18.6 (2.1-6.9); NEUTROPHILS % 84.8 % (38.7-80.0); RED BLOOD COUNT 4.23 x10e6/uL (4.3-5.7); RED CELL DISTRIBUTION WIDTH 13.6 % (11.7-14.4)
[2023-01-07 07:07] LABS: ALBUMIN/GLOBULIN RATIO 0.5 (0.8-2.0); ANION GAP 24.5 mmol/L (8-16); CREATININE, SERUM 4.2 mg/dL (0.72-1.25); POTASSIUM 5.5 mmol/L (3.5-5.1)
[2023-01-07 07:18] LABS: CALCIUM 6.2 mg/dL (8.4-10.2)
[2023-01-07] MEDS ORDERED: MUPIROCIN 2% OINT 22 GM TUBE TOP SCH (07:30)
[2023-01-07 08:35] LABS: ABG HCO3 21 mmol/L (22-26); ABG PCO2 39 mmHg (35-45); ABG PH 7.35 (7.35-7.45); ABG PO2 141 mmHg (80-105); ABG TCO2 22
[2023-01-07 08:53] LABS: PLATELET COUNT 52 x10e3/uL (140-360)
[2023-01-07] MEDS: CEFTRIAXONE 2 GM in SODIUM CHLORIDE 0.9% 100 ML IV SCH (08:54)
[2023-01-07] MEDS: AMIODARONE HCL 200 MG TAB PO SCH (08:55)
[2023-01-07] MEDS: FOLIC ACID 1 MG TAB PO SCH (08:55)
[2023-01-07] MEDS: LOSARTAN POTASSIUM 100 MG TAB PO SCH (08:55)
[2023-01-07] MEDS: DOCUSATE SODIUM 100 MG CAP PO SCH (08:55)
[2023-01-07] MEDS: DOXYCYCLINE HYCLATE TABLET 100 MG TAB PO SCH ×2 (08:56→15:58)
[2023-01-07] MEDS: SENNOSIDES 8.6 MG TAB PO SCH (08:56)
[2023-01-07] MEDS: ATORVASTATIN 10 MG TAB PO SCH (08:56)
[2023-01-07] MEDS ORDERED: METHYLPREDNISOLONE SOD SUCC 125 MG/2ML VIAL IV SCH (09:00)
[2023-01-07] MEDS: MUPIROCIN 2% OINT 22 GM TUBE TOP SCH (09:09)
[2023-01-07] MEDS: NOREPINEPHRINE 8 MG/D5W 250 ML 250 ML IV SCH (11:08)
[2023-01-07 12:14] LABS: ABG HCO3 22 mmol/L (22-26); ABG PCO2 37 mmHg (35-45); ABG PH 7.37 (7.35-7.45); ABG PO2 85 mmHg (80-105); ABG TCO2 23
[2023-01-07] MEDS: ENOXAPARIN SOD INJ 40 MG/0.4 ML SYR SC SCH (16:04)
[2023-01-07] MEDS: MIDAZOLAM HCL 2 MG/2 ML VIAL IV PRN (18:33)
== END 2023-01-07 21:01 | disposition hospice, inpatient (51) | DRG 871 ==
LOC: ER 00:15 → ERHOLD 04:57 → ICU 11:21
PROVIDERS: ADMIT Internal Medicine; ATTEND Internal Medicine
PROC: 02HV33Z Insertion of Infusion Device into Superior Vena Cava, Percutaneous Approach (ICD-10-PCS; 2023-01-04)
PROC: 3E043XZ Introduction of Vasopressor into Central Vein, Percutaneous Approach (ICD-10-PCS; principal; 2023-01-05)
PROC: 03HY33Z Insertion of Infusion Device into Upper Artery, Percutaneous Approach (ICD-10-PCS; 2023-01-05)
PROC: 3E04329 Introduction of Other Anti-infective into Central Vein, Percutaneous Approach (ICD-10-PCS; 2023-01-05)
PROC: 5A1935Z Respiratory Ventilation, Less than 24 Consecutive Hours (ICD-10-PCS; 2023-01-06)
PROC: 5A09357 Assistance with Respiratory Ventilation, Less than 24 Consecutive Hours, Continuous Positive Airway Pressure (ICD-10-PCS; 2023-01-06)
PROC: 0BH18EZ Insertion of Endotracheal Airway into Trachea, Via Natural or Artificial Opening Endoscopic (ICD-10-PCS; 2023-01-06)
DX: A41.9 Sepsis, unspecified organism (principal); I21.A1 Myocardial infarction type 2; J96.01 Acute respiratory failure with hypoxia; R65.21 Severe sepsis with septic shock; N17.0 Acute kidney failure with tubular necrosis; J84.114 Acute interstitial pneumonitis; I50.22 Chronic systolic (congestive) heart failure; I47.1 Supraventricular tachycardia; E87.20 Acidosis, unspecified; J84.10 Pulmonary fibrosis, unspecified; I25.10 Atherosclerotic heart disease of native coronary artery without angina pectoris; D64.9 Anemia, unspecified; D72.829 Elevated white blood cell count, unspecified; I11.0 Hypertensive heart disease with heart failure; Z88.0 Allergy status to penicillin; I27.29 Other secondary pulmonary hypertension; Z20.822 Contact with and (suspected) exposure to COVID-19; K72.90 Hepatic failure, unspecified without coma; R77.8 Other specified abnormalities of plasma proteins; E87.5 Hyperkalemia; D63.8 Anemia in other chronic diseases classified elsewhere; D52.9 Folate deficiency anemia, unspecified; E78.2 Mixed hyperlipidemia; Z86.79 Personal history of other diseases of the circulatory system; Z66 Do not resuscitate; Z74.2 Need for assistance at home and no other household member able to render care
CPT/HCPCS: 36415; 36569; 36600; 71045; 71260; 80048; 80053; 82550; 82553; 82607; 82728; 82746; 82805; 82948; 83540; 83605; 83735; 83880; 84443; 84466; 84484; 85025; 85610; 87040; 87070; 87205; 93005; 93306; 94003; 94640; 94660; 94799; 99252; 99285; J0330; J0360; J0456; J0696; J1650; J1940; J2250; J2920; J2930; J3370; J7030; J7040; J7050; J7070; Q9967

== ENCOUNTER 2023-01-07 21:11 | Inpatient (IN) | payer MEDICARE, OTHER ==
[~2023-01-07] VITALS: Ht 180.3 cm; Wt 99.3 kg
[~2023-01-07 21:11] MED LIST changes: +D3-5000125 MCG PO; +FLOMAX0.4 MG PO; +GABAPENTIN300 MG PO; +zinc PO
[2023-01-07] MEDS ORDERED: LORAZEPAM INJ 2 MG/ML VIAL IV PRN (21:30)
[2023-01-07] MEDS ORDERED: ACETAMINOPHEN 650 MG SUPP PR PRN (21:30)
[2023-01-07] MEDS ORDERED: SCOPOLAMINE 1 MG PATCH TD PRN (21:30)
[2023-01-07] MEDS ORDERED: Morphine 4mg INJECTION 4 MG/ML INJ IV ONE (21:30)
[2023-01-07] MEDS ORDERED: ONDANSETRON HCL INJ 2MG/ML 2ML 2 MG/ML VIAL IV PRN (21:30)
[2023-01-07] MEDS ORDERED: HYOSCYAMINE 0.125 MG TAB SL PRN (21:30)
[2023-01-07] MEDS ORDERED: Morphine 2mg Syringe 2 MG/ML SYR IV PRN (21:30)
[2023-01-07] MEDS ORDERED: LORAZEPAM INJ 2 MG/ML VIAL IV ONE (21:30)
[2023-01-07 22:00] VITALS: BP 117/58
[2023-01-07 22:30] VITALS: BP 117/58
[2023-01-07 23:00] VITALS: BP 113/54
[2023-01-08] VITALS (8 sets, daily range): BP systolic 11–58; BP diastolic 7–29
[2023-01-08] MEDS ORDERED: Morphine 4mg INJECTION 4 MG/ML INJ IV SCH
[2023-01-08] MEDS ORDERED: LORAZEPAM INJ 2 MG/ML VIAL IV SCH
== END 2023-01-08 03:05 | disposition expired | DRG 951 ==
LOC: ICU 21:11
PROVIDERS: ADMIT Internal Medicine; ATTEND Internal Medicine
DX: Z51.5 Encounter for palliative care (principal); J96.10 Chronic respiratory failure, unspecified whether with hypoxia or hypercapnia; J84.10 Pulmonary fibrosis, unspecified
CPT/HCPCS: J2060; J2270